=== PATIENT | female | born 1990 | race African-American/Black ===

== ENCOUNTER 2017-11-04 15:57 | Emergency (ER) | payer OTHER ==
[~2017-11-04] VITALS: Ht 165.1 cm; Wt 64.0 kg
[~2017-11-04 15:57] MED LIST: FERR-43 PO; PREN-88 PO
[2017-11-04 17:55] VITALS: BP 124/79
== END 2017-11-04 18:35 | disposition home or self-care (01) ==
LOC: ER 18:30
DX: Z32.01 Encounter for pregnancy test, result positive (principal)
CPT/HCPCS: 81025; 99283

== ENCOUNTER 2018-02-14 12:57 | Emergency (ER) | payer MEDICAID, OTHER ==
[~2018-02-14] VITALS: Ht 165.1 cm; Wt 78.0 kg
[2018-02-14] MEDS ORDERED: DIPHENHYDRAMINE 12.5MG/5ML UDC PO ONE (15:30)
[2018-02-14 15:34] LABS: CLARITY URINE CLEAR (CLEAR); COLOR URINE YELLOW (YELLOW); KETONES URINE NEGATIVE (NEGATIVE); LEUKOCYTE ESTERASE URINE NEGATIVE (NEGATIVE); NITRITE URINE NEGATIVE (NEGATIVE); OCCULT BLOOD URINE NEGATIVE (NEGATIVE); PROTEIN URINE NEGATIVE (NEGATIVE); SPECIFIC GRAVITY URINE 1.022 (1.005-1.030)
[2018-02-14 16:45] VITALS: BP 126/72
[2018-02-14 16:55] LABS: BASOPHILS % 0.2 % (0.0-2.0); EOSINOPHILS % 0.7 % (0.0-5.0); HEMATOCRIT. 28.6 % (36.0-48.0); HEMOGLOBIN. 9.7 g/dL (12.0-16.0); LYMPHOCYTES % 19.4 % (20.0-50.0); MEAN CORPUSCULAR HEMOGLOBIN 29.5 pg (28.0-32.0); MEAN CORPUSCULAR VOLUME 86.9 fL (81.0-99.0); MEAN PLATELET VOLUME 8.2 fl (7.4-10.4); MONOCYTES % 5.3 % (2.0-8.0); NEUTROPHILS % 74.4 % (40.0-76.0); PLATELET 243 x1000/uL (130-400); RED BLOOD CELL COUNT 3.29 mill/uL (4.2-5.4); RED CELL DISTRIBUTION WIDTH 14.8 % (11.6-14.6)
[2018-02-14 17:01] LABS: CHLORIDE 106 mEq/L (98-107)
[2018-02-14 17:02] LABS: PROTHROMBIN TIME 9.7 sec (9.1-11.1)
[2018-02-14 17:30] LABS: B-HCG QUANTITATIVE 6292 mIU/mL (<3)
== END 2018-02-14 18:01 | disposition home or self-care (01) ==
LOC: ER 12:57
DX: O21.0 Mild hyperemesis gravidarum (principal); L29.9 Pruritus, unspecified; Z3A.19 19 weeks gestation of pregnancy; Z98.890 Other specified postprocedural states
CPT/HCPCS: 36415; 81025; 84702; 99284; Q0163

== ENCOUNTER 2019-07-04 12:48 | Emergency (ER) | payer MEDICAID, OTHER ==
[~2019-07-04] VITALS: Ht 165.1 cm; Wt 68.0 kg
[2019-07-04 13:35] VITALS: BP 129/76
[2019-07-04 15:23] LABS: CLARITY URINE CLOUDY (CLEAR); COLOR URINE YELLOW (YELLOW); KETONES URINE NEGATIVE (NEGATIVE); LEUKOCYTE ESTERASE URINE NEGATIVE (NEGATIVE); NITRITE URINE NEGATIVE (NEGATIVE); OCCULT BLOOD URINE NEGATIVE (NEGATIVE); PROTEIN URINE NEGATIVE (NEGATIVE); SPECIFIC GRAVITY URINE 1.028 (1.005-1.030)
== END 2019-07-04 15:08 | disposition home or self-care (01) ==
LOC: ER 12:48
DX: Z32.02 Encounter for pregnancy test, result negative (principal); R11.0 Nausea; N64.4 Mastodynia
CPT/HCPCS: 81003; 81025; 99283

== ENCOUNTER 2019-09-08 13:08 | Emergency (ER) | payer MEDICAID, OTHER ==
[~2019-09-08] VITALS: Ht 165.1 cm; Wt 68.0 kg
[2019-09-08] MEDS ORDERED: CODE60TA PO (13:22)
[2019-09-08 16:18] VITALS: BP 142/71
== END 2019-09-08 16:19 | disposition home or self-care (01) ==
LOC: ER 13:08
DX: M25.522 Pain in left elbow (principal); Z79.899 Other long term (current) drug therapy; Z98.890 Other specified postprocedural states
CPT/HCPCS: 99282

== ENCOUNTER 2019-11-15 14:55 | Emergency (ER) | payer MEDICAID, OTHER ==
[~2019-11-15] VITALS: Ht 165.1 cm; Wt 68.0 kg
[~2019-11-15 14:55] MED LIST changes: +CODE60TA PO; -PREN-88 PO
[2019-11-15 15:07] VITALS: BP 123/83
[2019-11-15] MEDS ORDERED: IBUPROFEN 600MG TABLET PO ONE (16:30)
== END 2019-11-15 16:47 | disposition home or self-care (01) ==
LOC: ER 14:55
DX: G89.29 Other chronic pain (principal); M25.562 Pain in left knee; D64.9 Anemia, unspecified; Z76.0 Encounter for issue of repeat prescription; Z98.890 Other specified postprocedural states; Z79.899 Other long term (current) drug therapy
CPT/HCPCS: 29505; 99282; 99283

== ENCOUNTER 2020-01-07 18:01 | Emergency (ER) | payer MEDICAID ==
[~2020-01-07] VITALS: Ht 165.1 cm; Wt 70.0 kg
[2020-01-07] MEDS ORDERED: CYCLOBENZAPRINE 10MG TABLET PO ONE (18:45)
[2020-01-07] MEDS ORDERED: KETOROLAC 30MG/ML VIAL IM ONE (18:45)
[2020-01-07 21:23] VITALS: BP 135/80
== END 2020-01-07 22:02 | disposition home or self-care (01) ==
LOC: ER 18:01
DX: S16.1XXA Strain of muscle, fascia and tendon at neck level, initial encounter (principal); S39.012A Strain of muscle, fascia and tendon of lower back, initial encounter; S89.82XA Other specified injuries of left lower leg, initial encounter; R07.89 Other chest pain; M25.552 Pain in left hip; M25.551 Pain in right hip; V49.49XA Driver injured in collision with other motor vehicles in traffic accident, initial encounter; Y93.89 Activity, other specified; Y92.488 Other paved roadways as the place of occurrence of the external cause
CPT/HCPCS: 71045; 72040; 72100; 72170; 73562; 73590; 96372; 99284; J1885; L1830

== ENCOUNTER 2020-06-03 19:23 | Emergency (ER) | payer MEDICAID ==
[~2020-06-03] VITALS: Ht 165.1 cm; Wt 73.0 kg
[2020-06-03 19:38] VITALS: BP 128/81
[2020-06-03 20:49] LABS: CLARITY URINE CLEAR (CLEAR); COLOR URINE YELLOW (YELLOW); KETONES URINE NEGATIVE (NEGATIVE); LEUKOCYTE ESTERASE URINE NEGATIVE (NEGATIVE); NITRITE URINE NEGATIVE (NEGATIVE); OCCULT BLOOD URINE NEGATIVE (NEGATIVE); PROTEIN URINE NEGATIVE (NEGATIVE); SPECIFIC GRAVITY URINE 1.028 (1.005-1.030)
== END 2020-06-03 20:53 | disposition left against medical advice (07) ==
LOC: ER 19:23
DX: R10.13 Epigastric pain (principal); Z53.29 Procedure and treatment not carried out because of patient's decision for other reasons; D64.9 Anemia, unspecified; Z98.890 Other specified postprocedural states
CPT/HCPCS: 81003; 81025; 93005; 99284